=== PATIENT | female | born 1950 | race Caucasian/White ===

== ENCOUNTER → 2016-11-09 | Outpatient (CLI) | payer MEDICARE, OTHER ==
[~2016-11-09] MED LIST: ADVAIR; ADVAIR 250-501 EACH IH; ADVAIR 2501 DISK W/D PO; ADVAIR 500-501 EACH IH; ALBUTEROL MININEB NEB; ALBUTEROL0.83 MG/ML IH; ALDACTONE; ALDACTONE25 MG PO; ASPIRIN; BENZONATATE; BROMPHED; CHEWABLE ASPIRI81 MG PO; DALIRESP500 MCG PO; DICLOFENAC PO; DIOVAN; DIOVAN80 M1 PO; HUMIBID1200 MG MT; K-DUR10 MEQ PO; KLONOPIN PO; LASIX; LASIX PO; LASIX20 MG PO; LORTAB 5/500 TA1 TA1 PO; MEDROL4 MG/DOSE- PO; MOBIC PO; NEXIUM; NEXIUM PO; NORCO PO; OMNICEF; OMNICEF300 M1 PO; OMNICEF300 MG PO; PREDNISONE PO; PRILOSEC20 MG PO; ROBITUSSIN; ROBITUSSIN A-C10 ML PO; SPIRIVA18 MCG INH; TOPROL XL; TOPROL XL 50 MG50 MG PO; TYLENOL #3 PO
--- NOTE | ~2016-11-09 | CR63 ---
[facility] A Service of [facility] & [facility] RADIOLOGY TEXT RESULTS PATIENT: HEATHER SHANE LOCATION: [facility] : 48 UNIT #: [id number] AGE: [address]: Mary Rasmussen MD SEX: F ORDER DR: [id number] [address] [address] [id number] O MR#: [id number] Acc #: [id number] NAME: HEATHER SHANE : 1950 SEX: F STUDY DATE/TIME: 11/09/2016 11:32 UNIT: [facility] ROOM: STUDY DESCRIPTION: CR Chest 2 View Attending Physician: Mary Rasmussen M.D. Referring Physician: Mary Rasmussen M.D. Ordering Physician: Mary Rasmussen M.D. Primary Care Physician: Mary Rasmussen M.D. MEDICAL IMAGING REPORT This report is preliminary unless electronic signature is present. EXAM Chest PA and lateral 11/09/2016 HISTORY Cough and pneumonia since May 2016. Emphysema and COPD exacerbation, chest congestion. Smoking history for 50 years. Benign essential hypertension. FINDINGS Cardiac and mediastinal structures are stable compared with 08/12/2016. The lungs are hyperinflated with emphysematous and fibrotic changes characteristic of COPD. There has been interval decrease in lingular pneumonia. The lungs are otherwise clear. There are no pleural effusions. IMPRESSION Decrease in lingular pneumonia compared with 08/12/2016. Dictated by... Demetrius Gan M.D. THIS IS AN ELECTRONICALLY VERIFIED REPORT Demetrius Gan M.D. at 11/11/2016 8:17 AM KRT/pcl TD: 11/09/2016 17:31 JOB #: [id number] MEDICAL IMAGING REPORT Page 1 of 1
== END | disposition home or self-care (01) ==
LOC: SRAD 11:17
DX: J18.9 Pneumonia, unspecified organism (principal); J44.9 Chronic obstructive pulmonary disease, unspecified; I10 Essential (primary) hypertension
CPT/HCPCS: 71020

== ENCOUNTER → 2016-11-17 | Outpatient (CLI) | payer MEDICARE, OTHER ==
--- NOTE | ~2016-11-17 | CT57 ---
[facility] A Service of [facility] RADIOLOGY TEXT RESULTS PATIENT: HEATHER SHANE LOCATION: [facility] : 48 UNIT #: [id number] AGE: [address]: ABBY PETERS MD SEX: F ORDER DR: [id number] [place] [id number] O MR#: [id number] Acc #: [id number] NAME: HEATHER SHANE : 1950 SEX: F STUDY DATE/TIME: 11/17/2016 8:47 UNIT: [facility] ROOM: STUDY DESCRIPTION: CT Chest Wo Cont Attending Physician: Abby Peters M.D. Referring Physician: Abby Peters M.D. Ordering Physician: Abby Peters M.D. Primary Care Physician: Mary Rasmussen M.D. MEDICAL IMAGING REPORT This report is preliminary unless electronic signature is present. EXAM CT chest. INDICATION Pneumonia. Refractory to antibiotic therapy. Left pneumonia. Cough. TECHNIQUE CT of the thorax without contrast. Coronal and sagittal reconstructions were obtained. This CT exam was performed with one or more of the following radiation dose reduction techniques: automatic exposure control, adjustment of mA and/or kV according to patient size, and iterative reconstruction. COMPARISON CT chest 11/05/2015 and 03/09/2011. FINDINGS No pathologically enlarged mediastinal or hilar lymph nodes. No pericardial or pleural effusion. Thoracic aorta is normal in caliber. There are occasional coronary artery calcifications. There is occlusion of the right middle lobe bronchus. This results in atelectasis of majority of the right middle lobe. There is aeration seen in the lateral segment right middle lobe. There is background emphysema. Limited images of the upper abdomen were obtained. There is no acute findings. No acute osseous abnormalities. [facility] A Service [facility] RADIOLOGY TEXT RESULTS PATIENT: HEATHER SHANE LOCATION: [facility] : 48 UNIT #: [id number] AGE: [address]: ABBY PETERS MD SEX: F ORDER DR: IMPRESSION 1. Area of consolidation and volume loss in the medial segment right middle lobe. The right middle lobe bronchus is occluded. This is low-attenuation material and likely represents inspissated mucus, however, consider further evaluation with bronchoscopy to further evaluate. Alternately a short-interval followup CT scan could be performed. No discrete mass or lesions identified. 2. Emphysema. Dictated by... Julian Santos M.D. THIS IS AN ELECTRONICALLY VERIFIED REPORT Julian Santos M.D. at 11/17/2016 1:09 PM SHELDON/veronica TD: 11/17/2016 12:25 JOB #: [id number] MEDICAL IMAGING REPORT Page 1 of 1
== END | disposition home or self-care (01) ==
LOC: SCT 08:38
DX: J18.9 Pneumonia, unspecified organism (principal); J18.1 Lobar pneumonia, unspecified organism; J98.09 Other diseases of bronchus, not elsewhere classified; J43.9 Emphysema, unspecified
CPT/HCPCS: 71250

== ENCOUNTER → 2017-02-12 | Outpatient (CLI) | payer MEDICARE, OTHER ==
--- NOTE | ~2017-02-12 | CT57 ---
[facility] A Service of [facility] RADIOLOGY TEXT RESULTS PATIENT: HEATHER SHANE LOCATION: [facility] : 48 UNIT #: [id number] AGE: [address]: Josué Lewis MD SEX: F ORDER DR: [id number] [address] [address] [id number] O MR#: [id number] Acc #: [id number] NAME: HEATHER SHANE : 1950 SEX: F STUDY DATE/TIME: 02/12/2017 14:11 UNIT: [facility] ROOM: STUDY DESCRIPTION: CT Chest Wo Cont Attending Physician: Josué Lewis M.D. Referring Physician: Josué Lewis M.D. Ordering Physician: Josué Lewis M.D. Primary Care Physician: Mary Rasmussen M.D. MEDICAL IMAGING REPORT This report is preliminary unless electronic signature is present. EXAM CT of the chest without contrast INDICATIONS Congestion and cough beginning May 2016. Sinus drainage into lungs. Prior pneumonia. TECHNIQUE CT chest performed without contrast. Coronal and sagittal reformatted images were obtained. This CT exam was performed with one or more of the following radiation dose reduction techniques: automatic exposure control, adjustment of mA and/or kV according to patient size, and iterative reconstruction. COMPARISON STUDIES 11/17/2016. FINDINGS Mild emphysema. Decreased atelectasis in the right middle lobe. Stable atelectasis or scar in the lingula. No suspicious pulmonary nodule. Stable tiny thyroid nodule on the left. No lymphadenopathy or pleural effusion. Limited imaging of the upper abdomen demonstrates a cholecystectomy. The bone windows are unremarkable. IMPRESSION 1. Mild emphysema. 2. Decreased atelectasis within the right middle lobe. 3. The remainder of the study is unchanged. [facility] A Service [facility] RADIOLOGY TEXT RESULTS PATIENT: HEATHER SHANE LOCATION: [facility] : 48 UNIT #: [id number] AGE: [address]: Josué Lewis MD SEX: F ORDER DR: Dictated by... Kavin Gregorio M.D. THIS IS AN ELECTRONICALLY VERIFIED REPORT Kavin Gregorio M.D. at 02/14/2017 12:09 PM ARS/pcl TD: 02/13/2017 13:17 JOB #: [id number] MEDICAL IMAGING REPORT Page 1 of 1
--- NOTE | ~2017-02-12 | CT113 ---
[facility] A Service of [facility] RADIOLOGY TEXT RESULTS PATIENT: HEATHER SHANE LOCATION: [facility] : 48 UNIT #: [id number] AGE: [address]: Josué Lewis MD SEX: F ORDER DR: [id number] [address] [address] [id number] O MR#: [id number] Acc #: [id number] NAME: HEATHER SHANE : 1950 SEX: F STUDY DATE/TIME: 02/12/2017 14:07 UNIT: [facility] ROOM: STUDY DESCRIPTION: CT Sinuses Wo Contrast Attending Physician: Josué Lewis M.D. Referring Physician: Josué Lewis M.D. Ordering Physician: Josué Lewis M.D. Primary Care Physician: Mary Rasmussen M.D. MEDICAL IMAGING REPORT This report is preliminary unless electronic signature is present. EXAM CT of the sinuses INDICATION Recurrent pneumonia. Cough and congestion. Persistent sinus drainage. TECHNIQUE CT paranasal sinuses without contrast. Coronal and sagittal reconstructions were obtained. This CT exam was performed with one or more of the following radiation dose reduction techniques: automatic exposure control, adjustment of mA and/or kV according to patient size, and iterative reconstruction. COMPARISON None available. FINDINGS There is diffuse mucosal thickening and near complete opacification of the right sphenoid sinus. There is some mild hyperostosis of the wall of the sinus suggesting this may be a chronic process. There is minimal mucosal thickening in the left sphenoid sinus. Otherwise, the paranasal sinuses are clear. No air fluid levels. The ostiomeatal units are patent bilaterally. There is a osseous septum near the left ostiomeatal unit. There is pneumatized maciej bullosa in the right middle turbinate. Minimal leftward deviation of the nasal septum. No acute osseous abnormalities. IMPRESSION 1. Diffuse mucosal thickening and near complete opacification of the right sphenoid sinus. Mild hyperostosis suggests this could be a [facility] A Service of [facility] RADIOLOGY TEXT RESULTS PATIENT: HEATHER SHANE LOCATION: [facility] : 48 UNIT #: [id number] AGE: [address]: Josué Lewis MD SEX: F ORDER DR: chronic process. 2. Mild mucosal thickening in the left sphenoid sinus. 3. No air fluid levels. Dictated by... Julian Santos M.D. THIS IS AN ELECTRONICALLY VERIFIED REPORT Julian Santos M.D. at 02/15/2017 3:47 PM SHELDON/kathleen TD: 02/15/2017 12:15 JOB #: [id number] MEDICAL IMAGING REPORT Page 1 of 1
== END | disposition home or self-care (01) ==
LOC: SCT 13:55
DX: J32.9 Chronic sinusitis, unspecified (principal); J40 Bronchitis, not specified as acute or chronic; J43.9 Emphysema, unspecified; J98.11 Atelectasis; M85.2 Hyperostosis of skull
CPT/HCPCS: 70486; 71250